=== PATIENT | male | born 1970 | race Two or more races ===

== ENCOUNTER 2020-12-24 01:51 | Emergency (ER) | payer MEDICAID, OTHER ==
[~2020-12-24] VITALS: Ht 167.6 cm; Wt 99.8 kg
[2020-12-24] MEDS ORDERED: DOPamine 1600mCg/ml 400MG/250ml NSorD5 KIT/BAG IV ONE (01:52)
[2020-12-24] MEDS ORDERED: SODIUM BICARBONATE 8.4% INJ 50ML SYRINGE IV ONE (01:52)
[2020-12-24] MEDS ORDERED: EPINEPHrine HCL 1 MG/10 ML SYRG IV ONE (01:52)
[2020-12-24] MEDS ORDERED: ATROPINE SULFATE 1 MG/1 ML VIAL ONE (02:08)
[2020-12-24] MEDS ORDERED: NOREPINEPHRINE 8 MG/250ML KIT 250 ML IV ONE (02:22)
[2020-12-24 02:34] VITALS: BP 46/23
[2020-12-24 02:37] LABS: Mean Corpuscular Hemoglobin 26.8 pg (28.0-32.0); Mean Corpuscular Hgb Conc. 29.9 g/dL (32.0-36.0); Mean Corpuscular Volume 89.5 fL (80.0-100.0); Red Blood Cells 3.35 10^6/uL (4.5-5.90); Red Cell Distribution Width 16.3 % (11.8-14.3)
[2020-12-24] MEDS ORDERED: EPINEPHrine HCL 1 MG/10 ML SYRG ONE (02:37)
[2020-12-24 02:46] LABS: White Blood Cell 34.9 10^3/uL (4.4-10.8)
[2020-12-24 02:47] LABS: Basophils % (manual) 0 (0.0-2.0); Blast Cells 0; Eosinophils % (manual) 0 (0-7); Metamyelocytes % 0; Promyelocytes % 0; Reactive Lymphocytes 0
[2020-12-24 02:51] LABS: INR 1.33 (0.9-1.15); Partial Thromboplastin Time 58.5 sec (23.6-33.0)
[2020-12-24 02:59] LABS: Albumin 1.8 g/dL (3.4-5.0); BUN/Creatinine Ratio 17.8; Calcium 8.3 mg/dL (8.5-10.1); Magnesium 2.7 mg/dL (1.6-2.6)
[2020-12-24 03:04] LABS: Bilirubin, Total 1.2 mg/dL (0.2-1.0); Total Protein 6.3 g/dL (6.4-8.2)
[2020-12-24 03:18] LABS: Potassium 6.4 mmol/L (3.5-5.1)
[2020-12-24 03:30] LABS: Band Neutrophils % (manual) 22; Lymphocytes % (manual) 13 (10.0-50.0); Monocytes % (manual) 2 (0-12); Myelocytes % 6
== END 2020-12-24 15:44 ==
LOC: ER 01:51 → EDBD 01:51 → ER 03:00
DX: I45.9 Conduction disorder, unspecified (principal); E11.9 Type 2 diabetes mellitus without complications
CPT/HCPCS: 36415; 80053; 83735; 84484; 85007; 85027; 85610; 85730; 92950; 99291; J0171; J0461; J1265; 94002